=== PATIENT | male | born 1945 | race Caucasian/White ===

== ENCOUNTER → 2017-05-21 | Day surgery (SDC) | payer MEDICARE ==
[~2017-05-21] MED LIST: ACETAMINOPHEN 1000 MG/100 ML 100 ML IV ONE; BUPIVACAINE/EPINEPHRINE 0.25% 50 ML VIAL ONE; KETOROLAC TROMETHAMINE 30 MG/ML (IVP) VIAL IV PUSH ONE; LACTATED RINGER'S 1000 ML INJ 1,000 ML ONE; MEPERIDINE HCL 25 MG/ML VIAL ONE; MIDAZOLAM HCL 2 MG/2 ML VIAL ONE; ONDANSETRON HCL 4 MG/2 ML VIAL IV PUSH ONE; PROPOFOL 200 MG/20 ML AMP IV ONE; ROCURONIUM INJ 50 MG/5 ML VIAL ONE; SODIUM CHLOR 0.9% 250 ML BAG IV ONE; TRAM50TA PO; VANCOMYCIN HCL 1000 MG VIAL ONE; ceFAZolin INJ 1,000 MG VIAL ONE
--- NOTE | 2017-05-21 10:57 | MP ---
cc: JESSE LOGAN M.D. DATE OF SURGERY 05/21/2017 PROCEDURE 1. Laparoscopic right inguinal and right femoral hernia repair with mesh. 2. Excision lipoma of the spermatic cord. PREOPERATIVE DIAGNOSIS Symptomatic right inguinal hernia. POSTOPERATIVE DIAGNOSIS Symptomatic right inguinal and femoral hernia. ANESTHESIA LMA SURGEON Jesse Logan MD ESTIMATED BLOOD LOSS Less than 30 mL FLUIDS 1150 mL crystalloid COMPLICATIONS None DRAINS None SPECIMEN Lipoma of the cord to pathology. PROCEDURE IN DETAIL The patient was seen in the holding area and the right groin marked by the undersigned and confirmed by the patient. He was taken to the operating room and placed on the operating table in the supine position. After laryngeal mask anesthesia was instituted, the abdomen was shaved, prepped and draped. Time-out was taken confirming the correct patient, site, and procedure to be performed. The skin and subcutaneous tissue was infiltrated with local anesthetic as was the right lower quadrant near the groin prior to dissection. An incision was made in the umbilicus and carried through the fascia sharply. The peritoneal cavity was directly visualized. A 12 mm balloon trocar was inserted and the balloon inflated. The abdomen was insufflated and the patient placed in Trendelenburg position. A 12-mm trocar was then placed in the right lower quadrant and a 5 mm trocar in the left lower quadrant. Both entered the abdominal cavity under direct vision uneventfully. The peritoneum was then incised and peeled downward. The patient was noted to have an indirect inguinal hernia and the hernia sac was dissected off of the cord structures. During dissection and creation of a window behind the cord structures, the patient was also noted to have a femoral hernia down by Jeancarlos's ligament. The fatty tissue was swept free from this and care was taken to expose Jeancarlos's ligament so that the femoral hernia would be repaired adequately and minimize the risk of recurrence. The epigastric vessels were left intact as the repair could be accomplished around this. The patient was noted to have fatty tissue on the spermatic cord that would compromise the repair and thus this was taken off the cord during the dissection and was passed off the table. A 6 x 6 inch piece of Ultrapro mesh was trimmed down slightly with the corners rounded and slit made in the middle. The mesh was placed into the pelvis with the inferior leaf brought under the spermatic cord structures. The mesh was transfixed to Jeancarlos' s ligament with 4.0 mm jinny and then to the transversalis fascia with 4.8 mm jinny. The mesh was reapproximated laterally with two 4.8 mm jinny to create a new internal ring. The patient was noted to have the superior edge of hernia defect close to the edge of the mesh, thus, the additional piece of mesh was trimmed slightly and placed anteriorly to have a larger overlap of the hernia defect beyond the edge of the mesh. This mesh was fixed in place with 4.8 mm ijnny as well. The surgeon's finger was placed into the inguinal canal and the defect was seen to be overlapped by more than 3-4 cm of mesh. After decreasing insufflation, the peritoneum was reapproximated with 4.8 mm jinny. Insufflation was then discontinued completely and the 12 mm and 5 mm trocars were removed under direct vision. No bleeding was noted from the trocar sites. The laparoscope and umbilical port were then removed. The fascia was closed in the right lower quadrant 12-mm trocar site and in the umbilicus with 0 Vicryl suture in a [id number] fashion. The remaining local anesthetic was injected into the right groin and the skin closed at all three trocar sites with 4-0 Vicryl in an interrupted buried fashion. All three trocar sites were dressed with Steri-Strips. Sponge and needle counts were reported to be correct. The patient was extubated and taken back to the recovery room in stable condition. He tolerated the procedure well. MD SHEILA El/SRINIVASAN /10:37 AM /10:47 AM ABAD
== END | disposition home or self-care (01) ==
LOC: ESDC 06:35
PROVIDERS: ATTEND Surgery Trauma Surgery
DX: K40.90 Unilateral inguinal hernia, without obstruction or gangrene, not specified as recurrent (principal); K41.90 Unilateral femoral hernia, without obstruction or gangrene, not specified as recurrent; D17.6 Benign lipomatous neoplasm of spermatic cord
CPT/HCPCS: 00840; 49650; 88304; C1781; J0131; J0690; J1885; J2175; J2250; J2405; J3010; J3370; J7050; J7120